=== PATIENT | female | born 1960 | race Caucasian/White ===

== ENCOUNTER 2018-07-14 11:48 | Emergency (ER) | payer BC, SELFPAY ==
[2018-07-14 11:54] VITALS: BP 123/82; PULSE 76; RESP 20; TEMP 36.6; O2SAT 98
--- NOTE | 2018-07-14 12:18 | DI.RAD_ITS ---
SYMPTOMS/DIAGNOSIS: ROTATIONAL INJURY, PAIN LATERALLY, PAIN OVER PROXIMAL 5TH RIGHT ANKLE AND RIGHT FOOT: Three views of the ankle and three views of the foot are interpreted in conjunction. There is a nondisplaced fracture of the tip of the fibula. The ankle mortise appears well maintained. No additional fracture identified in the foot or ankle.
--- NOTE | 2018-07-14 12:19 | W.ED.GENAD ---
Discharge Plan Discharge Details Chief Complaint: Orthopedic Clinical Impression: Fracture of distal end of fibula Reason For Visit: ANKLE INJURY Primary Care Provider: Velia Gillette ED Provider: Nelda Quick Disposition Patient Disposition: HOME Condition: Good Home Meds and New Rx's Prescriptions: Continue sertraline [Zoloft] 100 mg Tablet 100 mg PO DAILY RF: 0 levothyroxine 100 mcg Tablet 100 mcg PO DAILY RF: 0 gabapentin 100 mg Capsule 100 mg PO TID RF: 0 methylphenidate HCl [Concerta] 36 mg Tablet Extended Release 24hr 36 mg PO BID RF: 0 quetiapine [Seroquel XR] 150 mg Tablet Extended Release 24 Hr 125 mg PO HS RF: 0 Discharge Instructions Instructions: Leg Fracture (ED) Additional Instructions: Encourage rest, ice, elevation. Keep boot on until evaluated by orthopedics. Tylenol and/or Motrin as needed for discomfort. Please call orthopedics to schedule follow up appointment. Seek care urgently if you develop new/worsening symptoms. Referrals: Arthur Naylor MD [ [facility] STAFF PHYSICIAN] - 1 week (Distal fibula fracture) Discharge Data Discharge Date/Time-TO BE ENTERED AT DEPARTURE: 07/14/18 13:00 Medical Decision Making MDM Narrative Medical decision making narrative: Patient presents with chief complaint of right foot and ankle pain. Patient reports she twisted her ankle this morning when stepping up onto a curb, reports she misstepped. Swelling and ecchymosis noted over the right lateral ankle. Pain is maximal over the ATFL. Minimal pain over the lateral malleolus. Pain over proximal 5th metatarsal, no swelling or discoloration noted in this area. Pain with plantar flexion. Ambulating with antalgic gait. Low suspicion for fracture, however, given location of pain imaging will be obtained. Seems primarily ligamentous. Will give Tylenol and Ibuprofen, patient has not taken anything as of yet for discomfort. Disucssed plan, she is in agreement. XR concerning of a small, nondisplaced distal fibula fracture. Confirmed diagnosis with radiologist. Discussed findings with the patient. She will be fitted with a walking boot. Advised she needs to wear this until evaluated by orthopedics. Encouraged rest, ice, elevation. Tylenol and/or Motrin as needed for discomfort. She will contact orthopedics today to schedule follow up appointment. Advised she seek care urgently with new/worsening symptoms. All of her questions and concerns were addressed, she is in agreement with this plan. Jn ambulating well with walking boot in place at the time of discharge. HPI - General Adult General Mode of arrival: ambulatory. Date/Time Provider Initiated Documentation: 07/14/18 12:10. Limitations to Documentation: no limitations. Information obtained by: patient. History of Present Illness 57 year old F presents to the emergency department with the chief complaint of right ankle and foot pain, described as moderate, Quality is described as aching and constant, and is localized to the lower extremity. Patient reports no radiation. Patient started experiencing this hour(s) (4) and it has been constant. Cold therapy improves symptom(s), and Immobilization improves symptom(s), Movement worsens symptoms . Patient notes no other symptoms.; denies cough and fever/chills. Patient did receive the following treatments prior to arrival, cold therapy Related Data Home Medications Medication Instructions Recorded Confirmed gabapentin 100 mg PO TID 07/14/18 07/14/18 levothyroxine 100 mcg PO DAILY 07/14/18 07/14/18 methylphenidate HCl [Concerta] 36 mg PO BID 07/14/18 07/14/18 quetiapine [Seroquel XR] 125 mg PO HS 07/14/18 07/14/18 sertraline [Zoloft] 100 mg PO DAILY 07/14/18 07/14/18 Allergies Allergy/AdvReac Type Severity Reaction Status Date / Time No Known Allergies Allergy Unverified 07/14/18 11:56 General Stated Complaint: Orthopedic INGA: 3 Review of Systems Constitutional Reports as per HPI, Denies chills and Denies fever(s) Respiratory Comments: None reported Musculoskeletal Reports as per HPI and Reports abnormal gait (antalgic gait) Integumentary/Breasts Reports as per HPI, Denies rash and Reports skin swelling Comments: Ecchymosis right lateral ankle Neurologic Reports as per HPI and Reports abnormal gait (antalgic gait) [facility] Social History Smoking/Tobacco Use Status: Never Exam Const General: cooperative, healthy appearing, comfortable, no acute distress, well developed and well groomed Nutritional Appearance: average body habitus Orientation: alert and awake Eyes General: appearance normal, both eyes and all related structures Resp Effort & Inspection: no respiratory distress Skin General skin exam: ecchymosis (lateral aspect of right ankle with associated swelling) Neuro General: alert, awake, gait abnormal (antalgic), moves all extremities and normal light touch, pain and propioception Gait: antalgic Sensory Exam: no sensory deficits noted Extrem General: abnormal to inspection (Patient has notable swelling and ecchymosis over the lateral aspect of the ankle. Pain primarily over the ATFL. No pain over the lateral maleoli. Achilles palpated, feels to be intact with no pain, negative Gonzalez test. No pain over the fibular head or neck. No pain medial. Full ROM), full ROM (pain with plantar flexion over lateral ankle and foot. ), normal capillary refill, normal exam except as noted (Pain also noted over the proximal 5th metatarsal. Pain in arch), no pedal edema, calf tenderness, abnormal gait, no calf tenderness bilaterally, limp and no muscle atrophy Left lower extremity: abnormal to inspection (please see above) Psych Appearance: grossly normal and well kempt Mental Status: mental status grossly normal Speech and Movement: speech and movement normal Mood: congruent mood Affect: normal affect Attitude: cooperative Thought Process: normal Course Vital Signs Temperature 36.6 C 07/14/18 11:54 Pulse 76 07/14/18 11:54 Respiratory Rate 20 07/14/18 11:54 Blood Pressure 123/82 07/14/18 11:54 Pulse Oximetry 98 07/14/18 11:54 Temperature 36.6 C 07/14/18 11:54 Pulse 76 07/14/18 11:54 Respiratory Rate 20 07/14/18 11:54 Blood Pressure 123/82 07/14/18 11:54 Pulse Oximetry 98 07/14/18 11:54
[2018-07-14] MEDS: Acetaminophen 500 MG TAB 1000 MG PO (12:24)
[2018-07-14] MEDS: Ibuprofen 600 MG TAB PO (12:25)
--- NOTE | 2018-07-14 12:26 | ED.GENADUL_ITS ---
Discharge Plan Discharge Details Chief Complaint: Orthopedic Clinical Impression: Fracture of distal end of fibula Reason For Visit: ANKLE INJURY Primary Care Provider: Velia Gillette ED Provider: Nelda Quick Disposition Patient Disposition: HOME Condition: Good Home Meds and New Rx's Prescriptions: Continue sertraline [Zoloft] 100 mg Tablet 100 mg PO DAILY RF: 0 levothyroxine 100 mcg Tablet 100 mcg PO DAILY RF: 0 gabapentin 100 mg Capsule 100 mg PO TID RF: 0 methylphenidate HCl [Concerta] 36 mg Tablet Extended Release 24hr 36 mg PO BID RF: 0 quetiapine [Seroquel XR] 150 mg Tablet Extended Release 24 Hr 125 mg PO HS RF: 0 Discharge Instructions Instructions: Leg Fracture (ED) Additional Instructions: Encourage rest, ice, elevation. Keep boot on until evaluated by orthopedics. Tylenol and/or Motrin as needed for discomfort. Please call orthopedics to schedule follow up appointment. Seek care urgently if you develop new/worsening symptoms. Referrals: Arthur Naylor MD [ [facility] STAFF PHYSICIAN] - 1 week (Distal fibula fracture) Discharge Data Discharge Date/Time-TO BE ENTERED AT DEPARTURE: 07/14/18 13:00 Medical Decision Making MDM Narrative Medical decision making narrative: Patient presents with chief complaint of right foot and ankle pain. Patient reports she twisted her ankle this morning when stepping up onto a curb, reports she misstepped. Swelling and ecchymosis noted over the right lateral ankle. Pain is maximal over the ATFL. Minimal pain over the lateral malleolus. Pain over proximal 5th metatarsal, no swelling or discoloration noted in this area. Pain with plantar flexion. Ambulating with antalgic gait. Low suspicion for fracture, however, given location of pain imaging will be obtained. Seems primarily ligamentous. Will give Tylenol and Ibuprofen, patient has not taken anything as of yet for discomfort. Disucssed plan, she is in agreement. XR concerning of a small, nondisplaced distal fibula fracture. Confirmed diagnosis with radiologist. Discussed findings with the patient. She will be fitted with a walking boot. Advised she needs to wear this until evaluated by orthopedics. Encouraged rest, ice, elevation. Tylenol and/or Motrin as needed for discomfort. She will contact orthopedics today to schedule follow up appointment. Advised she seek care urgently with new/worsening symptoms. All of her questions and concerns were addressed, she is in agreement with this plan. Jn ambulating well with walking boot in place at the time of discharge. HPI - General Adult General Mode of arrival: ambulatory . Date/Time Provider Initiated Documentation: 07/14/18 12:10 . Limitations to Documentation: no limitations . Information obtained by: patient . History of Present Illness 57 year old F presents to the emergency department with the chief complaint of right ankle and foot pain, described as moderate, Quality is described as aching and constant, and is localized to the lower extremity. Patient reports no radiation. Patient started experiencing this hour(s) (4) and it has been constant. Cold therapy improves symptom(s), and Immobilization improves symptom(s), Movement worsens symptoms . Patient notes no other symptoms.; denies cough and fever/chills. Patient did receive the following treatments prior to arrival, cold therapy Related Data Home Medications Medication Instructions Recorded Confirmed gabapentin 100 mg PO TID 07/14/18 07/14/18 levothyroxine 100 mcg PO DAILY 07/14/18 07/14/18 methylphenidate HCl [Concerta] 36 mg PO BID 07/14/18 07/14/18 quetiapine [Seroquel XR] 125 mg PO HS 07/14/18 07/14/18 sertraline [Zoloft] 100 mg PO DAILY 07/14/18 07/14/18 Allergies Allergy/AdvReac Type Severity Reaction Status Date / Time No Known Allergies Allergy Unverified 07/14/18 11:56 General Stated Complaint: Orthopedic INGA: 3 Review of Systems Constitutional Reports as per HPI, Denies chills and Denies fever(s) Respiratory Comments: None reported Musculoskeletal Reports as per HPI and Reports abnormal gait (antalgic gait) Integumentary/Breasts Reports as per HPI, Denies rash and Reports skin swelling Comments: Ecchymosis right lateral ankle Neurologic Reports as per HPI and Reports abnormal gait (antalgic gait) [facility] Social History Smoking/Tobacco Use Status: Never Exam Const General: cooperative, healthy appearing, comfortable, no acute distress, well developed and well groomed Nutritional Appearance: average body habitus Orientation: alert and awake Eyes General: appearance normal, both eyes and all related structures Resp Effort & Inspection: no respiratory distress Skin General skin exam: ecchymosis (lateral aspect of right ankle with associated swelling) Neuro General: alert, awake, gait abnormal (antalgic), moves all extremities and normal light touch, pain and propioception Gait: antalgic Sensory Exam: no sensory deficits noted Extrem General: abnormal to inspection (Patient has notable swelling and ecchymosis over the lateral aspect of the ankle. Pain primarily over the ATFL. No pain over the lateral maleoli. Achilles palpated, feels to be intact with no pain, negative Gonzalez test. No pain over the fibular head or neck. No pain medial. Full ROM), full ROM (pain with plantar flexion over lateral ankle and foot. ), normal capillary refill, normal exam except as noted (Pain also noted over the proximal 5th metatarsal. Pain in arch), no pedal edema, calf tenderness, abnormal gait, no calf tenderness bilaterally, limp and no muscle atrophy Left lower extremity: abnormal to inspection (please see above) Psych Appearance: grossly normal and well kempt Mental Status: mental status grossly normal Speech and Movement: speech and movement normal Mood: congruent mood Affect: normal affect Attitude: cooperative Thought Process: normal Course Vital Signs Temperature 36.6 C 07/14/18 11:54 Pulse 76 07/14/18 11:54 Respiratory Rate 20 07/14/18 11:54 Blood Pressure 123/82 07/14/18 11:54 Pulse Oximetry 98 07/14/18 11:54 Temperature 36.6 C 07/14/18 11:54 Pulse 76 07/14/18 11:54 Respiratory Rate 20 07/14/18 11:54 Blood Pressure 123/82 07/14/18 11:54 Pulse Oximetry 98 07/14/18 11:54
== END 2018-07-14 13:00 | disposition home or self-care (01) ==
PROVIDERS: Emergency Provider Physician Assistant; PCP Family Medicine
DX: S82.831A Other fracture of upper and lower end of right fibula, initial encounter for closed fracture (principal); X50.1XXA Overexertion from prolonged static or awkward postures, initial encounter
CPT/HCPCS: 29505; 99284; 73610; 73630; 99282; L4361